=== PATIENT | female | born 1970 | race Caucasian/White ===

== ENCOUNTER 2023-03-26 12:32 | Outpatient (CLI) | payer OTHER ==
[2023-03-26 15:09] LABS: BASOPHILS # (AUTO) 0.1 10^3/uL (0.0-0.1); BASOPHILS % (AUTO) 0.7 %; EOSINOPHILS # (AUTO) 0.1 10^3/uL (0.0-0.7); EOSINOPHILS % (AUTO) 1.5 %; HCT - HEMATOCRIT 41.3 % (37.0-47.0); HGB - HEMOGLOBIN 13.7 g/dL (12.0-16.0); LYMPHOCYTES # (AUTO) 2.6 10^3/uL (1.5-3.5); LYMPHOCYTES % (AUTO) 35.1 %; MEAN CORPUSCULAR HEMOGLOBIN 30.8 pg (27.0-31.0); MEAN CORPUSCULAR HGB CONC 33.2 g/dL (32.0-36.0); MEAN CORPUSCULAR VOLUME 92.8 fL (81.0-99.0); MONOCYTES # (AUTO) 0.6 10^3/uL (0.0-1.0); MONOCYTES % (AUTO) 7.7 %; NEUTROPHILS % (AUTO) 54.9 %; PLT - PLATELET COUNT 390 10^3/uL (130-450); RED BLOOD COUNT 4.45 10^6/uL (4.20-5.40); RED CELL DISTRIBUTION WIDTH 12.3 % (12.0-15.0); WHITE BLOOD COUNT 7.3 x10^3/uL (4.8-10.8)
[2023-03-26 16:30] LABS: THYROID STIMULATING HORMONE 2.15 uIU/mL (0.34-5.60)
[2023-03-26 17:03] LABS: ALBUMIN 4.8 g/dL (3.2-5.5); ALBUMIN/GLOBULIN RATIO 1.4 (1.0-2.2); BILIRUBIN,TOTAL 0.5 mg/dL (0.2-1.0); CALCIUM 9.8 mg/dL (8.5-10.3); CREATININE 0.6 mg/dL (0.4-1.0); POTASSIUM 4.1 mmol/L (3.5-5.0); TOTAL PROTEIN 8.3 g/dL (6.7-8.2)
[2023-03-26 20:42] LABS: ESTIMATED AVERAGE GLUCOSE 123 mg/dL (70-100); HEMOGLOBIN A1c% 5.9 % (4.27-6.07)
== END 2023-03-26 12:33 | disposition home or self-care (01) ==
LOC: LAB.S 12:32
PROVIDERS: ATTEND Physician Assistant Medical
DX: R53.83 Other fatigue (principal); R11.0 Nausea; R35.0 Frequency of micturition
CPT/HCPCS: 36415; 80053; 82150; 83036; 83690; 84443; 85025

== ENCOUNTER 2023-05-07 09:19 | Outpatient (CLI) | payer OTHER | END 2023-05-07 09:20 | disposition home or self-care (01) | LOC: LAB.S 09:19 | PROVIDERS: ATTEND Registered Nurse | DX: E55.9 Vitamin D deficiency, unspecified (principal) | CPT/HCPCS: 36415; 83970 ==